=== PATIENT | male | born 1950 | race African-American/Black ===

== ENCOUNTER 2017-02-21 11:55 | Emergency (ER) | payer MEDICAID ==
[~2017-02-21] VITALS: Ht 182.9 cm; Wt 67.0 kg
[~2017-02-21 11:55] MED LIST: APRISO0.375 GM PO; BENZTROPINE1 MG PO; BOOST PO; COGENTIN0.5 MG PO; HALDOL0.5 MG/TAB PO; RISPERDAL3 M1 PO; RISPERDAL3 MG PO; VESICARE5 MG PO
[2017-02-21] MEDS ORDERED: OXCARBAZEPINE150 MG PO (13:01)
[2017-02-21] MEDS ORDERED: TAMSULOSIN0.4 MG PO (13:03)
[2017-02-21] MEDS ORDERED: FINASTERIDE5 MG PO (13:03)
[2017-02-21 13:24] LABS: HEMOGLOBIN 14.5 g/dl (14.0-18.0); IMMATURE GRANULOCYTES 0.3 % (0.0-1.0); NEUT# 2.39 thou/uL (1.82-7.42); RED BLOOD COUNT 4.68 mill/uL (4.70-6.10); RED CELL DISTRI WIDTH 12.3 % (11.5-15.5)
[2017-02-21 13:25] LABS: URINE BILIRUBIN - DIPSTICK NEGATIVE (NEGATIVE); URINE BLOOD DIPSTICK NEGATIVE (NEGATIVE); URINE CLARITY CLEAR; URINE GLUCOSE - DIPSTICK NEGATIVE (NEGATIVE); URINE KETONE NEGATIVE (NEGATIVE); URINE LEUK ESTERASE NEGATIVE (NEGATIVE); URINE NITRITE - DIPSTICK NEGATIVE (Negative); URINE PH 5.5 (4.5-8.0); URINE PROTEIN - DIPSTICK NEGATIVE (NEG-TRACE); URINE SPECIFIC GRAVITY <=1.005; URINE UROBILINOGEN - DIPSTICK 0.2 E.U./dL (0.2)
[2017-02-21 13:26] LABS: URINE COLOR STRAW
[2017-02-21 13:27] LABS: BARBITURATES NEGATIVE (NEGATIVE); COCAINE NEGATIVE (NEGATIVE); METHADONE NEGATIVE (NEGATIVE); OXCYCODONE NEGATIVE (NEGATIVE); TETRAHYDROCANNABIONOL NEGATIVE (NEGATIVE); TRICYLIC ANTIDEPRESSANTS NEGATIVE (NEGATIVE)
[2017-02-21 13:37] LABS: ALBUMIN 4.3 g/dL (3.2-5.0); ALKALINE PHOSPHATASE 95 u/l (38-126); ANION GAP 15 (6-22 (CALC)); BILIRUBIN, TOTAL 0.6 mg/dL (0.0-1.4); BUN 14 mg/dL (8-23); BUN/CREATININE RATIO 16 (12-20 (CALC)); CALCIUM 9.7 mg/dL (8.4-10.2); CARBON DIOXIDE 25 mmol/l (22-30); CHLORIDE 105 mmol/l (95-108); CREATININE 0.9 mg/dL (0.7-1.3); GFR > 60 ML/MIN (>=60 (CALC)); GFR FOR AFR.AMER. > 60 ML/MIN (>=60 (CALC)); GLUCOSE 73 mg/dL (82-115); POTASSIUM 3.8 mmol/l (3.5-5.1); SGOT/AST 26 u/l (19-48); SGPT/ALT 31 u/l (11-66); SODIUM 141 mmol/l (137-146); TOTAL PROTEIN 7.5 g/dL (6.3-8.2)
[2017-02-21 14:49] VITALS: BP 121/84
== END 2017-02-21 14:49 | disposition short-term general hospital (02) | DRG 125 ==
LOC: ED 11:55
PROVIDERS: Emergency Medicine
DX: R44.1 Visual hallucinations (principal); F20.0 Paranoid schizophrenia; R44.0 Auditory hallucinations; F22 Delusional disorders; F91.8 Other conduct disorders; R41.82 Altered mental status, unspecified